=== PATIENT | female | born 1985 | race Caucasian/White ===

== ENCOUNTER 2017-11-22 03:03 | Emergency (ER) | payer SELFPAY ==
--- NOTE | 2017-11-22 03:58 | ER Document Report ---
ED Extremity Problem, Lower - General TRAVEL OUTSIDE OF THE [place] IN LAST 30 DAYS: No - General Chief Complaint: Foot Pain Stated Complaint: FOOT PAIN Time Seen by Provider: 11/22/17 03:48 Notes: Patient is a 32-year-old female presenting to the emergency department complaining of right foot pain onset several weeks ago worsening today. Patient states the pain is exacerbated with walking and notes minimal swelling to the dorsal aspect of her right foot. Patient denies any traumas or falls. ( ELKIN BETANCUR) - Related Data Allergies/Adverse Reactions: amoxicillin Allergy (Verified 11/22/17 03:21) Past Medical History - General Information source: Patient - Social History Smoking Status: Current Every Day Smoker Chew tobacco use (# tins/day): No Frequency of alcohol use: None Drug Abuse: None Family History: Reviewed & Not Pertinent Patient has suicidal ideation: No Patient has homicidal ideation: No Renal/ Medical History: Denies: Hx Peritoneal Dialysis Review of Systems - Review of Systems Constitutional: No symptoms reported EENT: No symptoms reported Cardiovascular: No symptoms reported Respiratory: No symptoms reported Gastrointestinal: No symptoms reported Genitourinary: No symptoms reported Female Genitourinary: No symptoms reported Musculoskeletal: See HPI Skin: No symptoms reported Hematologic/Lymphatic: No symptoms reported Neurological/Psychological: No symptoms reported -: Yes All other systems reviewed and negative Physical Exam - Vital signs Vitals: Temp Pulse Resp BP Pulse Ox 98.4 F 83 16 137/93 H 95 11/22/17 03:09 11/22/17 03:09 11/22/17 03:09 11/22/17 03:09 11/22/17 03:09 - Notes Notes: GENERAL: Alert, interacts well. No acute distress. HEAD: Normocephalic, atraumatic. EYES: Pupils equal, round, and reactive to light. Extraocular movements intact. ENT: Oral mucosa moist, tongue midline. NECK: Full range of motion. Supple. Trachea midline. LUNGS: No respiratory distress. EXTREMITIES: Moves all 4 extremities spontaneously. No deformities, no erythema , no swelling no signs of dislocation or fracture to the right foot. Symmetrical bilaterally. Good pulses. NEUROLOGICAL: Alert and oriented x3. Normal speech. PSYCH: Normal affect, normal mood. SKIN: Warm, dry, normal turgor. No rashes or lesions noted. (ELKIN BETANCUR) Course - Re-evaluation Re-evalutation: 11/22/17 05:30 Patient well-appearing in no distress patient states that repetitive movement makes foot hurt more and with rest the pain subsides. No recent traumas or falls no signs of infection or dislocation. Will provide patient postop shoe for support and 5 days of steroids. Patient requesting work excuse at this time. (ARYAN CHARLTON) - Vital Signs Vital signs: Temp Pulse Resp BP Pulse Ox 98.3 F 83 18 132/71 H 100 11/22/17 04:33 11/22/17 03:09 11/22/17 04:33 11/22/17 04:33 11/22/17 04:33 Discharge - Discharge Clinical Impression: Right foot strain Qualifiers: Encounter type: initial encounter Qualified Code(s): S96.911A - Strain of unspecified muscle and tendon at ankle and foot level, right foot, initial encounter Condition: Good Disposition: HOME, SELF-CARE Instructions: Exercises for the Foot Muscles ([facility]) Additional Instructions: Please use postop shoe for support and take all medications as prescribed. Please follow-up for reevaluation in 1-2 weeks if symptoms are not improving Prescriptions: Prednisone [Deltasone 20 mg Tablet] 2 tab PO DAILY 5 Days #10 tablet Forms: Return to Work Referrals: [facility] [Outside] - Follow up as needed Scribe Attestation: 11/22/17 22:11 I personally performed the services described in the documentation, reviewed and edited the documentation which was dictated to the scribe in my presence, and it accurately records my words and actions. (ARYAN CHARLTON) Scribe Documentation - Scribe Written by [email or web address]:: Kyle Rico, 11/22/2017 04:08 acting as scribe for :: Brian
[2017-11-22 04:41] VITALS: BP 132/71
== END 2017-11-22 04:41 | disposition home or self-care (01) ==
LOC: ER 03:03
DX: S96.911A Strain of unspecified muscle and tendon at ankle and foot level, right foot, initial encounter (principal); M79.671 Pain in right foot; X58.XXXA Exposure to other specified factors, initial encounter; F17.200 Nicotine dependence, unspecified, uncomplicated; Z88.0 Allergy status to penicillin
CPT/HCPCS: 99283